=== PATIENT | female | born 1975 | race Two or more races ===

== ENCOUNTER 2025-03-08 23:36 | Emergency (ER) | payer MEDICAID, OTHER ==
[~2025-03-08] VITALS: Ht 172.7 cm; Wt 164.6 kg
[2025-03-08 23:38] VITALS: BP 169/77; PULSE 120; RESP 20; TEMP 99.4; O2SAT 98
== END 2025-03-09 02:41 | disposition left against medical advice (07) ==
LOC: ER 23:41
DX: K08.89 Other specified disorders of teeth and supporting structures (principal); Z53.21 Procedure and treatment not carried out due to patient leaving prior to being seen by health care provider